=== PATIENT | male | born 1975 | race Caucasian/White ===

== ENCOUNTER 2018-02-27 18:53 | Emergency (ER) | payer MEDICAID, SELFPAY ==
[~2018-02-27] VITALS: Ht 180.3 cm; Wt 77.4 kg
[2018-02-27 19:04] VITALS: BP 131/78
== END 2018-02-27 19:54 | disposition left against medical advice (07) ==
LOC: ED 19:48
DX: R10.9 Unspecified abdominal pain (principal)
CPT/HCPCS: 99281